=== PATIENT | male | born 1990 | race Caucasian/White ===

== ENCOUNTER 2018-12-18 07:02 | Inpatient (IN) | payer OTHER ==
[2018-12-15 13:43] LABS: ADD MAN DIFF? NO
[2018-12-15 13:47] LABS: BASOPHILS % 0.3 % (0.0-2.0); EOSINOPHILS # 0.2 10^3/ul (0.0-0.5); EOSINOPHILS % 2.7 % (0.0-7.0); HEMATOCRIT 44.3 % (42.0-52.0); HEMOGLOBIN 15.1 g/dl (14.0-18.0); LYMPHOCYTES # 1.9 10^3/ul (0.8-2.9); LYMPHOCYTES % 32.1 % (15.0-51.0); MEAN CORPUSCULAR HEMOGLOBIN 28.8 pg (29.0-33.0); MEAN CORPUSCULAR HGB CONC 34.1 g/dl (32.0-37.0); MEAN CORPUSCULAR VOLUME 84.4 fl (82.0-101.0); MEAN PLATELET VOLUME 11.1 fl (7.4-10.4); MONOCYTE # 0.4 10^3/ul (0.3-0.9); MONOCYTES % 7.2 % (0.0-11.0); NEUTROPHIL # 3.4 10^3/ul (1.6-7.5); NEUTROPHILS % 57.7 % (39.0-77.0); PLATELET COUNT 281 10^3/UL (140-415); RED BLOOD COUNT 5.25 10^6/ul (4.70-6.10); RED CELL DISTRIBUTION WIDTH 12.2 % (11.5-14.5)
[2018-12-15 13:47] LABS: WHITE BLOOD COUNT 5.8 10^3/ul (4.8-10.8)
[2018-12-15 14:08] LABS: ALANINE AMINOTRANSFERASE 28 IU/L (13-69); ALBUMIN 4.6 g/dl (3.3-4.9); ALBUMIN/GLOBULIN RATIO 1.24; ALKALINE PHOSPHATASE 58 IU/L (42-121); ANION GAP 12 (5-13); ASPARTATE AMINO TRANSFERASE 29 IU/L (15-46); BILIRUBIN,INDIRECT 0.4 mg/dl (0-1.1); BILIRUBIN,TOTAL 0.4 mg/dl (0.2-1.3); BLOOD UREA NITROGEN 10 mg/dl (7-20); CALCIUM 9.9 mg/dl (8.4-10.2); CARBON DIOXIDE 27 mmol/L (21-31); CHLORIDE 104 mmol/L (97-110); CREATININE 0.88 mg/dl (0.61-1.24); Estimated GFR > 60 mL/min (>60); GLUCOSE 103 mg/dl (70-220); SODIUM 143 mmol/L (135-144); TOTAL PROTEIN 8.3 g/dl (6.1-8.1)
[2018-12-15 14:11] LABS: INR 0.99; PROTIME 13.2 Sec (11.9-14.9)
[2018-12-15 14:12] LABS: PARTIAL THROMBOPLASTIN TIME 32.5 Sec (23.0-35.0)
[2018-12-18] MEDS ORDERED: HYDROmorphONE 1 MG/5 ML IV SYRINGE IV ×2 (09:00)
[2018-12-18] MEDS ORDERED: DIPHENHYDRAMINE 50 MG INJ IV (09:00)
[2018-12-18] MEDS ORDERED: FENTAnyl 50 MCG/ML VIAL IV ×2 (09:00)
[2018-12-18] MEDS ORDERED: ALBUTEROL 0.083% (NEB) 2.5 MG/3 ML AMP HHN (09:00)
[2018-12-18] MEDS ORDERED: MEPERIDINE 25 MG INJ IV (09:00)
[2018-12-18] MEDS ORDERED: ONDANSETRON 4 MG INJ IV (09:00)
[2018-12-18] MEDS ORDERED: METOCLOPRAMIDE 10 MG INJ IV (09:00)
[2018-12-18] MEDS ORDERED: FENTAnyl 50 MCG/ML VIAL ×4 (09:20→13:17)
[2018-12-18] MEDS ORDERED: LIDOCAINE 100 MG SYRINGE (09:38)
[2018-12-18] MEDS ORDERED: PROPOFOL 40 ML (09:38)
[2018-12-18] MEDS ORDERED: ROCURONIUM 50 MG INJ (09:38)
[2018-12-18] MEDS ORDERED: CEFAZOLIN 1 GM INJ (09:38)
[2018-12-18] MEDS ORDERED: SUCCINYLCHOLINE CHLORIDE 100 MG/5 ML SYG IV (09:38)
[2018-12-18] MEDS ORDERED: SUGAMMADEX SODIUM 200 MG/2 ML VIAL IV (12:39)
[2018-12-18] MEDS: HYDROmorphONE 1 MG/5 ML IV SYRINGE IV ×5 (13:30→13:58)
[2018-12-18] MEDS: FENTAnyl 50 MCG/ML VIAL IV ×5 (13:31→13:59)
[2018-12-18] MEDS: HYDROmorphONE 0.2 MG/ML PCA IV ×2 (14:07→18:31)
[2018-12-18] MEDS ORDERED: DIPHENHYDRAMINE 50 MG INJ (14:16)
[2018-12-18] MEDS: D5W-0.45 NACL + KCL 20 MEQ 1,000 ML IV ×2 (16:00→21:00)
[2018-12-18] MEDS: KETOROLAC 30 MG INJ IV ×2 (16:49→22:55)
[2018-12-19] MEDS: D5W-0.45 NACL + KCL 20 MEQ 1,000 ML IV ×4 (02:25→20:47)
[2018-12-19] MEDS: KETOROLAC 30 MG INJ IV ×4 (05:05→21:00)
[2018-12-19] MEDS: PANTOPRAZOLE 40 MG INJ IV (05:06)
[2018-12-19] MEDS: HYDROmorphONE 0.2 MG/ML PCA IV ×3 (08:08→20:48)
[2018-12-19 09:08] LABS: ADD MAN DIFF? NO
[2018-12-19 09:14] LABS: WHITE BLOOD COUNT 7.3 10^3/ul (4.8-10.8)
[2018-12-19 09:14] LABS: BASOPHILS % 0.1 % (0.0-2.0); EOSINOPHILS # 0.1 10^3/ul (0.0-0.5); EOSINOPHILS % 1.8 % (0.0-7.0); HEMATOCRIT 38.7 % (42.0-52.0); HEMOGLOBIN 12.9 g/dl (14.0-18.0); LYMPHOCYTES # 1.7 10^3/ul (0.8-2.9); MEAN CORPUSCULAR HEMOGLOBIN 28.8 pg (29.0-33.0); MEAN CORPUSCULAR HGB CONC 33.3 g/dl (32.0-37.0); MEAN CORPUSCULAR VOLUME 86.4 fl (82.0-101.0); MEAN PLATELET VOLUME 11.3 fl (7.4-10.4); MONOCYTE # 0.7 10^3/ul (0.3-0.9); MONOCYTES % 9.7 % (0.0-11.0); NEUTROPHIL # 4.7 10^3/ul (1.6-7.5); NEUTROPHILS % 65.1 % (39.0-77.0); PLATELET COUNT 233 10^3/UL (140-415); RED BLOOD COUNT 4.48 10^6/ul (4.70-6.10); RED CELL DISTRIBUTION WIDTH 12.4 % (11.5-14.5)
[2018-12-19 09:33] LABS: INR 1.08; PARTIAL THROMBOPLASTIN TIME 31.5 Sec (23.0-35.0); PROTIME 14.1 Sec (11.9-14.9); PT RATIO 1.1
[2018-12-19 09:47] LABS: ANION GAP 8 (5-13); BLOOD UREA NITROGEN 7 mg/dl (7-20); CALCIUM 8.7 mg/dl (8.4-10.2); CARBON DIOXIDE 27 mmol/L (21-31); CHLORIDE 102 mmol/L (97-110); Estimated GFR > 60 mL/min (>60); GLUCOSE 111 mg/dl (70-220); POTASSIUM 3.9 mmol/L (3.5-5.1); SODIUM 137 mmol/L (135-144)
[2018-12-19] MEDS: ONDANSETRON 4 MG INJ IV (13:29)
[2018-12-20] MEDS: D5W-0.45 NACL + KCL 20 MEQ 1,000 ML IV ×4 (03:23→23:03)
[2018-12-20] MEDS: KETOROLAC 30 MG INJ IV ×4 (03:25→22:07)
[2018-12-20] MEDS: HYDROmorphONE 0.2 MG/ML PCA IV ×4 (05:34→20:43)
[2018-12-20] MEDS: PANTOPRAZOLE 40 MG INJ IV (05:54)
[2018-12-20 10:36] LABS: ADD MAN DIFF? NO
[2018-12-20 10:40] LABS: BASOPHILS % 0.1 % (0.0-2.0); EOSINOPHILS # 0.2 10^3/ul (0.0-0.5); EOSINOPHILS % 2.8 % (0.0-7.0); HEMATOCRIT 38.7 % (42.0-52.0); HEMOGLOBIN 12.9 g/dl (14.0-18.0); LYMPHOCYTES # 1.2 10^3/ul (0.8-2.9); LYMPHOCYTES % 16.8 % (15.0-51.0); MEAN CORPUSCULAR HGB CONC 33.3 g/dl (32.0-37.0); MEAN PLATELET VOLUME 10.8 fl (7.4-10.4); MONOCYTE # 0.6 10^3/ul (0.3-0.9); MONOCYTES % 8.7 % (0.0-11.0); NEUTROPHILS % 71.2 % (39.0-77.0); PLATELET COUNT 227 10^3/UL (140-415); RED BLOOD COUNT 4.45 10^6/ul (4.70-6.10)
[2018-12-20 11:00] LABS: INR 0.98; PROTIME 13.1 Sec (11.9-14.9)
[2018-12-20 11:01] LABS: PARTIAL THROMBOPLASTIN TIME 31.8 Sec (23.0-35.0)
[2018-12-20 11:05] LABS: ANION GAP 8 (5-13); BLOOD UREA NITROGEN 5 mg/dl (7-20); CARBON DIOXIDE 29 mmol/L (21-31); CHLORIDE 102 mmol/L (97-110); CREATININE 0.74 mg/dl (0.61-1.24); Estimated GFR > 60 mL/min (>60); GLUCOSE 104 mg/dl (70-220); POTASSIUM 3.8 mmol/L (3.5-5.1); SODIUM 139 mmol/L (135-144)
[2018-12-20] MEDS: ONDANSETRON 4 MG INJ IV (12:43)
[2018-12-20] MEDS: FAMOTIDINE 20 MG INJ IV (20:11)
[2018-12-21] MEDS: KETOROLAC 30 MG INJ IV ×2 (05:06→10:09)
[2018-12-21] MEDS: HYDROmorphONE 0.2 MG/ML PCA IV ×4 (05:32→23:21)
[2018-12-21] MEDS: D5W-0.45 NACL + KCL 20 MEQ 1,000 ML IV ×4 (07:22→23:11)
[2018-12-21 08:29] LABS: ADD MAN DIFF? NO
[2018-12-21 08:35] LABS: BASOPHILS % 0.3 % (0.0-2.0); EOSINOPHILS # 0.2 10^3/ul (0.0-0.5); EOSINOPHILS % 2.6 % (0.0-7.0); HEMATOCRIT 39.5 % (42.0-52.0); HEMOGLOBIN 12.9 g/dl (14.0-18.0); LYMPHOCYTES # 1.1 10^3/ul (0.8-2.9); LYMPHOCYTES % 16.4 % (15.0-51.0); MEAN CORPUSCULAR HEMOGLOBIN 28.4 pg (29.0-33.0); MEAN CORPUSCULAR HGB CONC 32.7 g/dl (32.0-37.0); MEAN PLATELET VOLUME 10.8 fl (7.4-10.4); MONOCYTE # 0.5 10^3/ul (0.3-0.9); MONOCYTES % 8.1 % (0.0-11.0); NEUTROPHIL # 4.8 10^3/ul (1.6-7.5); NEUTROPHILS % 72.3 % (39.0-77.0); PLATELET COUNT 245 10^3/UL (140-415); RED BLOOD COUNT 4.54 10^6/ul (4.70-6.10); RED CELL DISTRIBUTION WIDTH 11.9 % (11.5-14.5)
[2018-12-21 08:35] LABS: WHITE BLOOD COUNT 6.6 10^3/ul (4.8-10.8)
[2018-12-21 09:04] LABS: ANION GAP 12 (5-13); BLOOD UREA NITROGEN 7 mg/dl (7-20); CALCIUM 9.2 mg/dl (8.4-10.2); CARBON DIOXIDE 26 mmol/L (21-31); CHLORIDE 101 mmol/L (97-110); CREATININE 0.74 mg/dl (0.61-1.24); Estimated GFR > 60 mL/min (>60); GLUCOSE 102 mg/dl (70-220); POTASSIUM 3.8 mmol/L (3.5-5.1); SODIUM 139 mmol/L (135-144)
[2018-12-21] MEDS: FAMOTIDINE 20 MG INJ IV ×2 (09:10→21:04)
[2018-12-21 10:21] LABS: INR 0.98; PROTIME 13.1 Sec (11.9-14.9)
[2018-12-21 10:22] LABS: PARTIAL THROMBOPLASTIN TIME 32.4 Sec (23.0-35.0)
[2018-12-21] MEDS: CEPASTAT LOZENGE MT ×2 (15:29→17:31)
[2018-12-21] MEDS: ACETAMINOPHEN 1000MG/100ML IV 100 ML IVPB ×2 (15:29→21:04)
[2018-12-22] MEDS: ONDANSETRON 4 MG INJ IV ×2 (00:55→10:28)
[2018-12-22] MEDS: CEPASTAT LOZENGE MT (01:04)
[2018-12-22] MEDS: ACETAMINOPHEN 1000MG/100ML IV 100 ML IVPB ×2 (03:38→09:05)
[2018-12-22] MEDS: HYDROmorphONE 0.2 MG/ML PCA IV ×3 (04:50→17:31)
[2018-12-22] MEDS: D5W-0.45 NACL + KCL 20 MEQ 1,000 ML IV ×3 (06:52→19:07)
[2018-12-22] MEDS: FAMOTIDINE 20 MG INJ IV ×2 (08:59→20:51)
[2018-12-22 10:17] LABS: ADD MAN DIFF? NO
[2018-12-22 10:25] LABS: WHITE BLOOD COUNT 6.1 10^3/ul (4.8-10.8)
[2018-12-22 10:25] LABS: BASOPHILS % 0.3 % (0.0-2.0); EOSINOPHILS # 0.2 10^3/ul (0.0-0.5); EOSINOPHILS % 2.9 % (0.0-7.0); HEMATOCRIT 39.2 % (42.0-52.0); HEMOGLOBIN 13.2 g/dl (14.0-18.0); LYMPHOCYTES # 1.5 10^3/ul (0.8-2.9); LYMPHOCYTES % 23.7 % (15.0-51.0); MEAN CORPUSCULAR HEMOGLOBIN 28.8 pg (29.0-33.0); MEAN CORPUSCULAR HGB CONC 33.7 g/dl (32.0-37.0); MEAN CORPUSCULAR VOLUME 85.6 fl (82.0-101.0); MEAN PLATELET VOLUME 10.6 fl (7.4-10.4); MONOCYTE # 0.7 10^3/ul (0.3-0.9); MONOCYTES % 10.6 % (0.0-11.0); NEUTROPHIL # 3.8 10^3/ul (1.6-7.5); NEUTROPHILS % 62.2 % (39.0-77.0); PLATELET COUNT 292 10^3/UL (140-415); RED BLOOD COUNT 4.58 10^6/ul (4.70-6.10)
[2018-12-22 10:50] LABS: PROTIME 13.3 Sec (11.9-14.9)
[2018-12-22 10:51] LABS: PARTIAL THROMBOPLASTIN TIME 33.1 Sec (23.0-35.0)
[2018-12-22 10:53] LABS: ANION GAP 9 (5-13); BLOOD UREA NITROGEN 8 mg/dl (7-20); CALCIUM 9.5 mg/dl (8.4-10.2); CARBON DIOXIDE 28 mmol/L (21-31); CHLORIDE 101 mmol/L (97-110); CREATININE 0.66 mg/dl (0.61-1.24); Estimated GFR > 60 mL/min (>60); GLUCOSE 108 mg/dl (70-220); POTASSIUM 3.8 mmol/L (3.5-5.1); SODIUM 138 mmol/L (135-144)
[2018-12-23] MEDS: HYDROmorphONE 0.2 MG/ML PCA IV ×3 (01:19→19:12)
[2018-12-23] MEDS: D5W-0.45 NACL + KCL 20 MEQ 1,000 ML IV ×4 (04:19→22:06)
[2018-12-23] MEDS: FAMOTIDINE 20 MG INJ IV ×2 (09:46→20:59)
[2018-12-24] MEDS: D5W-0.45 NACL + KCL 20 MEQ 1,000 ML IV ×4 (00:32→21:03)
[2018-12-24 05:22] LABS: ADD MAN DIFF? NO
[2018-12-24 05:40] LABS: WHITE BLOOD COUNT 5.5 10^3/ul (4.8-10.8)
[2018-12-24 05:40] LABS: BASOPHILS % 0.5 % (0.0-2.0); EOSINOPHILS # 0.2 10^3/ul (0.0-0.5); EOSINOPHILS % 3.3 % (0.0-7.0); HEMATOCRIT 37.7 % (42.0-52.0); HEMOGLOBIN 12.8 g/dl (14.0-18.0); LYMPHOCYTES # 1.2 10^3/ul (0.8-2.9); LYMPHOCYTES % 21.4 % (15.0-51.0); MEAN CORPUSCULAR VOLUME 85.3 fl (82.0-101.0); MEAN PLATELET VOLUME 10.5 fl (7.4-10.4); MONOCYTE # 0.6 10^3/ul (0.3-0.9); MONOCYTES % 10.4 % (0.0-11.0); NEUTROPHIL # 3.5 10^3/ul (1.6-7.5); NEUTROPHILS % 64.2 % (39.0-77.0); PLATELET COUNT 288 10^3/UL (140-415); RED BLOOD COUNT 4.42 10^6/ul (4.70-6.10)
[2018-12-24] MEDS: FAMOTIDINE 20 MG INJ IV ×2 (08:42→20:54)
[2018-12-24] MEDS: HYDROmorphONE 0.2 MG/ML PCA IV (10:28)
[2018-12-24 16:23] LABS: ANION GAP 11 (5-13); BLOOD UREA NITROGEN 7 mg/dl (7-20); CALCIUM 9.6 mg/dl (8.4-10.2); CARBON DIOXIDE 24 mmol/L (21-31); CHLORIDE 102 mmol/L (97-110); CREATININE 0.66 mg/dl (0.61-1.24); Estimated GFR > 60 mL/min (>60); GLUCOSE 94 mg/dl (70-220); POTASSIUM 4.6 mmol/L (3.5-5.1); SODIUM 137 mmol/L (135-144)
[2018-12-24] MEDS: CEPASTAT LOZENGE MT (21:02)
[2018-12-25] MEDS: D5W-0.45 NACL + KCL 20 MEQ 1,000 ML IV ×4 (01:32→20:39)
[2018-12-25] MEDS: FAMOTIDINE 20 MG INJ IV ×2 (09:19→20:39)
[2018-12-25] MEDS: DIATR MEGLU/DIATRIZOATE SODIUM 120 ML BTL (11:57)
[2018-12-25] MEDS: HYDROmorphONE 0.5 MG/0.5 ML SYG IV (20:39)
[2018-12-26] MEDS: D5W-0.45 NACL + KCL 20 MEQ 1,000 ML IV ×2 (00:51→16:38)
[2018-12-26] MEDS: HYDROmorphONE 0.5 MG/0.5 ML SYG IV ×4 (02:31→20:29)
[2018-12-26] MEDS: FAMOTIDINE 20 MG INJ IV ×2 (08:40→20:29)
[2018-12-26] MEDS ORDERED: FAMOTIDINE 20 MG TAB PO (21:00)
[2018-12-27] MEDS: HYDROmorphONE 0.5 MG/0.5 ML SYG IV ×4 (00:21→21:23)
[2018-12-27] MEDS: D5W-0.45 NACL + KCL 20 MEQ 1,000 ML IV ×2 (05:14→18:42)
[2018-12-27] MEDS: FAMOTIDINE 20 MG INJ IV ×2 (09:53→21:23)
[2018-12-27] MEDS: morphine LIQ (10 MG/5 ML) CUP PO ×2 (10:02→16:10)
[2018-12-27] MEDS: ONDANSETRON 4 MG INJ IV (17:15)
[2018-12-28] MEDS: D5W-0.45 NACL + KCL 20 MEQ 1,000 ML IV (07:38)
[2018-12-28] MEDS: FAMOTIDINE 20 MG INJ IV (08:52)
== END 2018-12-28 12:55 | disposition home or self-care (01) | DRG 327 ==
LOC: REC 07:02 → MS1 15:16
PROC: 0DB60ZZ Excision of Stomach, Open Approach (ICD-10-PCS; principal; 2018-12-18 09:00)
PROC: 0D160ZA Bypass Stomach to Jejunum, Open Approach (ICD-10-PCS; 2018-12-18 09:00)
DX: C16.9 Malignant neoplasm of stomach, unspecified (principal); Z68.41 Body mass index [BMI] 40.0-44.9, adult; E66.01 Morbid (severe) obesity due to excess calories
CPT/HCPCS: 71045; 71046; 74230; 80048; 80053; 85025; 85610; 85730; 87086; 88307; 88312; 88331; 93005

== ENCOUNTER 2018-12-29 20:13 | Emergency (ER) | payer SELFPAY, OTHER | END 2018-12-29 20:34 | disposition left against medical advice (07) | LOC: E/R 20:13 | DX: Z53.21 Procedure and treatment not carried out due to patient leaving prior to being seen by health care provider (principal) ==

== ENCOUNTER 2019-06-07 18:35 | Emergency (ER) | payer OTHER ==
[2019-06-07 21:28] LABS: ADD MAN DIFF? NO
[2019-06-07] MEDS: morphine 4 MG/ML VIAL IV (21:30)
[2019-06-07 21:32] LABS: BASOPHILS % 0.4 % (0.0-2.0); EOSINOPHILS # 0.1 10^3/ul (0.0-0.5); EOSINOPHILS % 1.6 % (0.0-7.0); HEMATOCRIT 40.6 % (42.0-52.0); HEMOGLOBIN 13.6 g/dl (14.0-18.0); LYMPHOCYTES # 2.7 10^3/ul (0.8-2.9); LYMPHOCYTES % 36.8 % (15.0-51.0); MEAN CORPUSCULAR HEMOGLOBIN 29.6 pg (29.0-33.0); MEAN CORPUSCULAR HGB CONC 33.5 g/dl (32.0-37.0); MEAN CORPUSCULAR VOLUME 88.3 fl (82.0-101.0); MEAN PLATELET VOLUME 11.2 fl (7.4-10.4); MONOCYTE # 0.6 10^3/ul (0.3-0.9); MONOCYTES % 7.5 % (0.0-11.0); NEUTROPHIL # 3.9 10^3/ul (1.6-7.5); NEUTROPHILS % 53.6 % (39.0-77.0); PLATELET COUNT 232 10^3/UL (140-415); RED CELL DISTRIBUTION WIDTH 12.2 % (11.5-14.5)
[2019-06-07 21:32] LABS: WHITE BLOOD COUNT 7.3 10^3/ul (4.8-10.8)
[2019-06-07 21:35] LABS: ADD UMIC NO; UR ASCORBIC ACID NEGATIVE (NEGATIVE); UR BILIRUBIN (Dip) NEGATIVE (NEGATIVE); UR BLOOD (Dip) NEGATIVE (NEGATIVE); UR CLARITY CLEAR (CLEAR); UR COLOR YELLOW (YELLOW); UR GLUCOSE (Dip) NEGATIVE (NEGATIVE); UR KETONES (Dip) NEGATIVE (NEGATIVE); UR LEUKOCYTE ESTERASE (Dip) NEGATIVE Leu/ul (NEGATIVE); UR NITRITE (Dip) NEGATIVE (NEGATIVE); UR SPECIFIC GRAVITY (Dip) 1.016 (1.003-1.030); UR TOTAL PROTEIN (Dip) NEGATIVE (NEGATIVE); UR UROBILINOGEN (Dip) 1+ mg/dL (NEGATIVE)
[2019-06-07 21:51] LABS: ALANINE AMINOTRANSFERASE 48 IU/L (13-69); ALBUMIN 3.9 g/dl (3.3-4.9); ALBUMIN/GLOBULIN RATIO 1.14; ALKALINE PHOSPHATASE 83 IU/L (42-121); ANION GAP 7 (5-13); ASPARTATE AMINO TRANSFERASE 34 IU/L (15-46); BILIRUBIN,INDIRECT 0.4 mg/dl (0-1.1); BILIRUBIN,TOTAL 0.4 mg/dl (0.2-1.3); BLOOD UREA NITROGEN 9 mg/dl (7-20); CALCIUM 9.3 mg/dl (8.4-10.2); CARBON DIOXIDE 28 mmol/L (21-31); CHLORIDE 105 mmol/L (97-110); CREATININE 0.64 mg/dl (0.61-1.24); Estimated GFR > 60 mL/min (>60); GLUCOSE 86 mg/dl (70-220); POTASSIUM 3.9 mmol/L (3.5-5.1); SODIUM 140 mmol/L (135-144); TOTAL PROTEIN 7.3 g/dl (6.1-8.1)
== END 2019-06-07 22:39 | disposition home or self-care (01) ==
LOC: E/R 18:35
DX: R10.31 Right lower quadrant pain (principal); Z85.028 Personal history of other malignant neoplasm of stomach
CPT/HCPCS: 36415; 74176; 80053; 81003; 85025; 96374; 99285-25